=== PATIENT | male | born 1990 | race Caucasian/White ===

== ENCOUNTER 2020-07-30 12:14 | Emergency (ER) | payer SELFPAY ==
--- NOTE | 2020-07-30 12:49 | EDM.PDOCBH ---
ED HPI GENERAL MEDICAL PROBLEM - General Chief Complaint: Drug or Alcohol Abuse Stated Complaint: MED CLEARANCE FOR [facility] Time Seen by Provider: 07/30/20 12:30 Source of Information: Reports: Patient History Limitations: Reports: No Limitations, Other (That will signs reveal a temp of 97.7, pulse of 76, respiratory rate of 18, blood pressure 111/58, pulse ox 96% on room air.) - History of Present Illness INITIAL COMMENTS - FREE TEXT/NARRATIVE: 29-year-old male presents to the emergency department for medical clearance to enter [facility]. Patient has a history of fentanyl abuse, smoking. States he has smoked couple months at a time for the past year stopping for a week or 2 in between. Last smoked fentanyl last evening. States when he stopped smoking he will do 3 shots of hard alcohol at night to cope with the detox symptoms. States he smoked methamphetamine once about a month ago. He also snorted cocaine once about a month ago. He states he smokes marijuana daily several times a day. Dates that prior to the fentanyl abuse he was a heroin addict for several years. Denies use of benzodiazepines. He states that years ago when he was doing several drugs at a time he detoxed and he thinks he may have had a seizure but he is unsure of that. States he does have a history of anxiety and depression for which he sought counseling several years ago however he has never been treated with medications. Denies any auditory or visual hallucinations. He has smoked cigarettes about 1/2 pack a day since about the age of 16. - Related Data Allergies Allergy/AdvReac Type Severity Reaction Status Date / Time No Known Allergies Allergy Verified 07/30/20 12:28 Home Meds: Home Meds . [No Known Home Meds] 07/30/20 [History] Past Medical History HEENT History: Reports: Impaired Vision Other HEENT History: wears glasses Gastrointestinal History: Reports: GERD Musculoskeletal History: Reports: Fracture Other Musculoskeletal History: skull (1999) Neurological History: Reports: Head Trauma, Migraines, Other (See Below) Other Neuro History: skull fracture (1999) Psychiatric History: Reports: Addiction, Anxiety, Depression - Infectious Disease History Infectious Disease History: Reports: Hepatitis B Other Infectious Disease History: possible - Past Surgical History HEENT Surgical History: Reports: Adenoidectomy, Oral Surgery, Tonsillectomy Social & Family History - Family History Family Medical History: No Pertinent Family History - Tobacco Use Tobacco Use Status *Q: Current Every Day Tobacco User Years of Tobacco use: 14 Packs/Tins Daily: 1 - Caffeine Use Caffeine Use: Reports: Coffee - Recreational Drug Use Recreational Drug Use: Yes Drug Use in Last 12 Months: Yes Recreational Drug Type: Reports: Fentanyl, Marijuana/Hashish, Other (see below) Other Recreational Drug Type: History of Heroin - last use 1 year ago Recreational Drug Use Frequency: Daily ED ROS GENERAL - Review of Systems Review Of Systems: See Below Constitutional: Reports: Diaphoresis. Denies: Fever, Chills HEENT: Reports: Glasses Respiratory: Reports: Cough (Chronic due to smoking fentanyl). Denies: Wheezing, Pleuritic Chest Pain, Sputum Cardiovascular: Reports: No Symptoms Endocrine: Reports: No Symptoms GI/Abdominal: Reports: Abdominal Pain (Due To detox), Diarrhea (Due to detox), Nausea (Due to detox) : Reports: No Symptoms Musculoskeletal: Reports: No Symptoms Skin: Reports: Lesions (Scattered scabbed lesions on forehead, back, and neck, arms and hands.) Neurological: Reports: No Symptoms Psychiatric: Reports: No Symptoms. Denies: Hallucinations, Homicidal Ideation, Suicidal Ideation Hematologic/Lymphatic: Reports: No Symptoms Immunologic: Reports: No Symptoms ED EXAM, BEHAVIORAL HEALTH - Physical Exam Exam: See Below Exam Limited By: No Limitations General Appearance: Alert, WD/WN, No Apparent Distress Eye Exam: Bilateral Eye: PERRL Ears: Normal External Exam, Hearing Grossly Normal Nose: Normal Inspection Throat/Mouth: Normal Inspection, Normal Voice, No Airway Compromise Head: Atraumatic, Normocephalic Neck: Normal Inspection, Supple, Non-Tender, Full Range of Motion Respiratory/Chest: No Respiratory Distress, Lungs Clear, Normal Breath Sounds, No Accessory Muscle Use, Chest Non-Tender Cardiovascular: Normal Peripheral Pulses, Regular Rate, Rhythm, No Edema, No Murmur GI/Abdominal: Normal Bowel Sounds, Soft, Non-Tender, No Distention (Male) Exam: Deferred Rectal (Males) Exam: Deferred Back Exam: Normal Inspection, Full Range of Motion Extremities: Normal Inspection, Normal Range of Motion, Non-Tender, No Pedal Edema, Normal Capillary Refill Neurological: Alert, Normal Mood/Affect, Normal Cognition Psychiatric: Alert, Normal Affect, Normal Cognition, Normal Mood, Oriented Skin Exam: Warm, Dry, Normal color, Wound/incision (Scattered scabbed lesions noted to head, face, back, back of neck, arms and hands) #1 Interpretation EKG Date: 07/30/20 Time: 12:45 Rhythm: NSR Rate (Beats/Min): 67 [place]: Normal P-Wave: Present QRS: Normal ST-T: Normal QT: Normal Comparison: NA - No Prior EKG EKG Interpretation Comments: Per Dr. David interpretation: Normal sinus rhythm at 67 COURSE, BEHAVIORAL HEALTH COMP - Course Vital Signs: Last Vital Signs Temp 97.7 F 07/30/20 12:23 Pulse 76 07/30/20 12:23 Resp 18 07/30/20 12:23 BP 111/58 L 07/30/20 12:23 Pulse Ox 96 07/30/20 12:23 Orders, Labs, Meds: Active Orders 24 hr Category Date Time Status EKG Documentation Completion [[facility]] STAT Care 07/30/20 12:41 Active Laboratory Tests 07/30/20 07/30/20 07/30/20 Range/Units 12:50 12:50 12:50 WBC 7.06 (4.23-9.07) K/mm3 RBC 4.97 (4.63-6.08) M/mm3 Hgb 15.1 (13.7-17.5) gm/dl Hct 44.1 (40.1-51.0) % MCV 88.7 (79.0-92.2) fl MCH 30.4 (25.7-32.2) pg MCHC 34.2 (32.2-35.5) g/dl RDW Std Deviation 42.6 (35.1-43.9) fL Plt Count 240 (163-337) K/mm3 MPV 9.0 L (9.4-12.3) fl Neut % (Auto) 69.4 H (34.0-67.9) % Lymph % (Auto) 21.5 L (21.8-53.1) % [place] % (Auto) 7.6 (5.3-12.2) % Eos % (Auto) 1.1 (0.8-7.0) Baso % (Auto) 0.3 (0.1-1.2) % Neut # (Auto) 4.89 (1.78-5.38) K/mm3 Lymph # (Auto) 1.52 (1.32-3.57) K/mm3 [place] # (Auto) 0.54 (0.30-0.82) K/mm3 Eos # (Auto) 0.08 (0.04-0.54) K/mm3 Baso # (Auto) 0.02 (0.01-0.08) K/mm3 Sodium 142 (136-145) mEq/L Potassium 4.2 (3.5-5.1) mEq/L Chloride 104 (98-107) mEq/L Carbon Dioxide 32 (21-32) mEq/L Anion Gap 10.2 (5-15) BUN 13 (7-18) mg/dL Creatinine 0.9 (0.7-1.3) mg/dL Est Cr Clr Drug Dosing 127.30 mL/min Estimated GFR (MDRD) > 60 (>60) mL/min BUN/Creatinine Ratio 14.4 (14-18) Glucose 105 (74-106) mg/dL Calcium 9.0 (8.5-10.1) mg/dL Magnesium 2.1 (1.8-2.4) mg/dl Total Bilirubin 0.6 (0.2-1.0) mg/dL AST 25 (15-37) U/L ALT 33 (16-63) U/L Alkaline Phosphatase 55 (46-116) U/L Total Protein 6.7 (6.4-8.2) g/dl Albumin 3.9 (3.4-5.0) g/dl Globulin 2.8 gm/dL Albumin/Globulin Ratio 1.4 (1-2) TSH 3rd Generation 0.620 (0.358-3.74) uIU/mL Salicylates (2.8-20) mg/dL Urine Opiates Screen (OPHTJL=410) Ur Buprenorphine Scrn (CUTOFF=10) Ur Oxycodone Screen (UXQ4ML=543) Urine Methadone Screen (SMR9FZ=484) Ur Propoxyphene Screen (ZSJRNT=267) Acetaminophen 0 L (10-30) ug/mL Ur Barbiturates Screen (UFWRES=012) Ur Tricyclics Screen (FGNZII=811) Ur Phencyclidine Scrn (CUTOFF=25) Ur Amphetamine Screen (QUWZUB=799) U Methamphetamines Scrn (OXEXIO=381) U Benzodiazepines Scrn (KSEZKC=508) U Cocaine Metab Screen (DPJHJX=095) U Marijuana (THC) Screen (CUTOFF=50) Ethyl Alcohol 0.00 (0.00) gm% SARS-CoV-2 RNA (SONIYA) Negative (NEGATIVE) 07/30/20 07/30/20 Range/Units 12:50 12:55 WBC (4.23-9.07) K/mm3 RBC (4.63-6.08) M/mm3 Hgb (13.7-17.5) gm/dl Hct (40.1-51.0) % MCV (79.0-92.2) fl MCH (25.7-32.2) pg MCHC (32.2-35.5) g/dl RDW Std Deviation (35.1-43.9) fL Plt Count (163-337) K/mm3 MPV (9.4-12.3) fl Neut % (Auto) (34.0-67.9) % Lymph % (Auto) (21.8-53.1) % [place] % (Auto) (5.3-12.2) % Eos % (Auto) (0.8-7.0) Baso % (Auto) (0.1-1.2) % Neut # (Auto) (1.78-5.38) K/mm3 Lymph # (Auto) (1.32-3.57) K/mm3 [place] # (Auto) (0.30-0.82) K/mm3 Eos # (Auto) (0.04-0.54) K/mm3 Baso # (Auto) (0.01-0.08) K/mm3 Sodium (136-145) mEq/L Potassium (3.5-5.1) mEq/L Chloride (98-107) mEq/L Carbon Dioxide (21-32) mEq/L Anion Gap (5-15) BUN (7-18) mg/dL Creatinine (0.7-1.3) mg/dL Est Cr Clr Drug Dosing mL/min Estimated GFR (MDRD) (>60) mL/min BUN/Creatinine Ratio (14-18) Glucose (74-106) mg/dL Calcium (8.5-10.1) mg/dL Magnesium (1.8-2.4) mg/dl Total Bilirubin (0.2-1.0) mg/dL AST (15-37) U/L ALT (16-63) U/L Alkaline Phosphatase (46-116) U/L Total Protein (6.4-8.2) g/dl Albumin (3.4-5.0) g/dl Globulin gm/dL Albumin/Globulin Ratio (1-2) TSH 3rd Generation (0.358-3.74) uIU/mL Salicylates 0.4 L (2.8-20) mg/dL Urine Opiates Screen Negative (NAHGKY=687) Ur Buprenorphine Scrn Negative (CUTOFF=10) Ur Oxycodone Screen Negative (KOC2EG=813) Urine Methadone Screen Negative (UUB5VI=290) Ur Propoxyphene Screen Negative (VNRFBE=559) Acetaminophen (10-30) ug/mL Ur Barbiturates Screen Negative (GOETKH=598) Ur Tricyclics Screen Negative (HDVJXX=243) Ur Phencyclidine Scrn Negative (CUTOFF=25) Ur Amphetamine Screen Negative (VFDPKV=683) U Methamphetamines Scrn Negative (DNDFCE=347) U Benzodiazepines Scrn Negative (JNGVES=961) U Cocaine Metab Screen Negative (LUXQOO=194) U Marijuana (THC) Screen Presumptive positive H (CUTOFF=50) Ethyl Alcohol (0.00) gm% SARS-CoV-2 RNA (SONIYA) (NEGATIVE) Re-Assessment/Re-Exam: 29-year-old male with a history of primarily smoking fentanyl over the past year. Would consistently smoke this for a couple of months at a time and then stop for a week or 2 in between before starting back up again. Has also used methamphetamine and cocaine 1 time about a month ago. Uses 2-3 shots of hard liquor at night when he would be detoxing from the fentanyl. Denies any current fever, chills, vomiting. He does note some nausea and abdominal discomfort and diarrhea. States he has a chronic cough due to smoking of fentanyl. Standard labs have been ordered as well as an EKG. At this time patient is awake and al ert and is not diaphoretic or anxious. States he has not been sleeping well for about the past year, specifically when he is coming off of the fentanyl. States that his appetite has been fair. 1403 CBC is unremarkable, CMP and TSH also unremarkable, urine drug screen positive for marijuana, acetaminophen level is 0, ethyl alcohol 0.00, patient is Covid negative. Awaiting salicylate level 1516 Salicylate level 0.4. Patient will be cleared for discharge to the [facility]. Nursing staff is arranging this. Departure - Departure Time of Disposition: 15:52 Disposition: Home, Self-Care 01 Condition: Fair Clinical Impression: Drug abuse, opioid type - Discharge Information Instructions: Substance Use Disorder Referrals: PCP,None [Primary Care Provider] - Forms: ED Department Discharge Additional Instructions: You are seen in the emergency department today for clearance to the [facility]. Routine labs were completed and vital signs have all remained stable. You are cleared for discharge to [facility]. Sepsis Event Note (ED) - Evaluation Sepsis Screening Result: No Definite Risk - Focused Exam Vital Signs: Vital Signs Temp Pulse Resp BP Pulse Ox 07/30/20 12:23 97.7 F 76 18 111/58 L 96 - My Orders Last 24 Hours: My Active Orders 07/30/20 12:41 EKG Documentation Completion [[facility]] STAT - Assessment/Plan Last 24 Hours: My Active Orders 07/30/20 12:41 EKG Documentation Completion [[facility]] STAT
[2020-07-30 13:28] LABS: ACETAMINOPHEN 0 ug/mL (10-30)
== END 2020-07-30 17:40 | disposition home or self-care (01) ==
LOC: JD.ED 12:14
DX: F11.10 Opioid abuse, uncomplicated (principal); F17.200 Nicotine dependence, unspecified, uncomplicated; Z20.822 Contact with and (suspected) exposure to COVID-19
CPT/HCPCS: 36415; 80053; 80143; 80179; 80306; 80307; 83735; 84443; 85025; 93005; 93010; 99283-25; 99284; U0002